=== PATIENT | female | born 1995 | race American Indian/Alaskan Native ===

== ENCOUNTER 2017-11-10 10:28 | Emergency (ER) | payer MEDICAID ==
[2017-11-10 11:19] VITALS: BP 118/73; PULSE 78; RESP 18; TEMP 98.2; O2SAT 100
--- NOTE | 2017-11-10 14:31 | C.PDOC ---
History Of Present Illness 22 y/o female presents to the ED complaining of right ear pain for past couple of days. The patient reports recent airplane travels. She adds that her ears never "popped" when the plane descended. The patient admits to a decrease in hearing ability since the plane ride. She offers no other medical complaints at this time. Time Seen by Provider: 11/10/17 10:42 Chief Complaint (Nursing): ENT Problem History Per: Patient History/Exam Limitations: None Onset/Duration Of Symptoms: Days Current Symptoms Are (Timing): Still Present Past Medical History Reviewed: Historical Data, Nursing Documentation, Vital Signs Vital Signs: Last Vital Signs Temp 98.2 F 11/10/17 10:44 Pulse 78 11/10/17 10:44 Resp 18 11/10/17 10:44 BP 118/73 11/10/17 10:44 Pulse Ox 100 11/10/17 14:37 - Medical History PMH: Asthma Surgical History: Family History: States: Unknown Family Hx - Social History Hx Alcohol Use: No Hx Substance Use: No - Immunization History Hx Tetanus Toxoid Vaccination: No Hx Influenza Vaccination: No Hx Pneumococcal Vaccination: No Review Of Systems Except As Marked, All Systems Reviewed And Found Negative. Constitutional: Negative for: Fever ENT: Positive for: Ear Pain. Negative for: Ear Discharge Physical Exam - Physical Exam Appears: Well, Non-toxic, No Acute Distress Skin: Normal Color, Warm, No Rash Head: Atraumatic, Normacephalic Eye(s): bilateral: PERRL, EOMI Ear(s): Right: TM Erythema (Buldging ) Oral Mucosa: Moist Throat: Normal Neck: Supple Chest: Symmetrical Cardiovascular: Rhythm Regular, No Murmur Neurological/Psych: Oriented x3 Gait: Steady ED Course And Treatment O2 Sat by Pulse Oximetry: 100 (RA) Pulse Ox Interpretation: Normal Medical Decision Making Medical Decision Making: Impression: 52 y/o female c/o of ear pain due to it never "popping" when airplane descended Plan: --Motrin 600mg Prescription was given to patient and she was advised to follow up with her PCP. Disposition - Disposition Referrals: Mc Dominguez MD [Staff Provider] - Disposition: HOME/ ROUTINE Disposition Time: 10:55 Condition: GOOD Additional Instructions: MAXIM MUSA ALEMAN, thank you for letting us take care of you today. Your provider was Maciej Sosa DO and you were treated for RT EAR PAIN. The emergency medical care you received today was directed at your acute symptoms. If you were prescribed any medication, please fill it and take as directed. It may take several days for your symptoms to resolve. Return to the Emergency Department if your symptoms worsen, do not improve, or if you have any other problems. Please contact your doctor or call one of the physicians/clinics you have been referred to that are listed on the Patient Visit Information form that is included in your discharge packet. Bring any paperwork you were given at discharge with you along with any medications you are taking to your follow up visit. Our treatment cannot replace ongoing medical care by a primary care provider outside of the emergency department. Thank you for allowing the [facility] team to be part of your care today. Follow up with the ENT doctor in 2-3 days for re-evaluation and further management. Prescriptions: Amoxicillin [Amoxil 500 mg Cap] 500 mg PO TID #21 cap Ibuprofen [Motrin] 600 mg PO Q6 PRN #20 tab PRN Reason: Pain, Moderate (4-7) Pseudoephedrine [Sudafed Tab] 30 mg PO Q6 #20 tab Instructions: Ear Infections (Otitis Media) (DC) Forms: [employer] ([place]rainian) - Clinical Impression Clinical Impression: Otitis media - PA / PRIVATE DUTY NURSE / Resident Statement / has reviewed & agrees with the documentation as recorded. - Scribe Statement The provider has reviewed the documentation as recorded by the Scribe (Jessica Mace) Provider Attestation: All medical record entries made by the Scribe were at my direction and personally dictated by me. I have reviewed the chart and agree that the record accurately reflects my personal performance of the history, physical exam, medical decision making, and the department course for this patient. I have also personally directed, reviewed, and agree with the discharge instructions and disposition.
== END 2017-11-10 11:25 | disposition home or self-care (01) ==
LOC: C.ER 10:28
DX: H66.91 Otitis media, unspecified, right ear (principal)